=== PATIENT | female | born 1950 | race Caucasian/White ===

== ENCOUNTER 2016-11-23 18:34 | Emergency (ER) | payer MEDICARE, OTHER ==
[~2016-11-23] VITALS: Ht 168.9 cm; Wt 97.7 kg
[2016-11-23 18:42] VITALS: BP 142/83; PULSE 71; RESP 22; O2SAT 100
[2016-11-23] MEDS ORDERED: oxyCODONE-Acetamin 5-325 mg Tablet PO ONE (19:00)
--- NOTE | 2016-11-23 19:37 | DRSVH ---
PROCEDURE: X-RAY LEFT SHOULDER, MINIMUM TWO VIEWS ([id number]) INDICATIONS: fell onto shoulder/severe pain TECHNIQUE: 2 views of the shoulder were acquired. COMPARISON: [facility], MR, SHOULDER LT W/O CONTRAST, 04/14/2013, 8:15. FINDINGS: Bones: There is a comminuted fracture of the humeral head and neck with mild impaction and displaceme nt. No suspicious bony lesions. Visualized ribs appear intact. Soft tissues: A calcific density overlying the right head noted, likely secondary to calcific tendini tis. IMPRESSION: 1. Comminuted fracture of the humeral head and neck. 2. Calcific tendinitis of the rotator cuff. Dictated by: Shine Saldaña M.D. on 11/23/2016 at 19:35 Approved by: Shine Saldaña M.D. on 11/23/2016 at 19:37
--- NOTE | 2016-11-23 20:22 | ED.REPORT ---
HPI-Extremity Problem Upper Date of Service Nov 23, 2016 ED Provider: Cesar Grant DO A right-handed 66 year old female with a history of diabetes presents to the ED complaining of left shoulder pain. The pt was leaving a [place] [employer] this evening when she tripped on a step and fell on the shoulder. The pt did hit her head, but states that it was not very hard. She denies loss of consciousness or neck pain. She also denies chest pain or concerning symptoms prior to the fall. The pt is not taking blood thinners. Nursing Notes Stated Complaint: GLF, LEFT ARM PAIN Chief Complaint: Extremity Trauma Nursing Notes Reviewed: Yes Allergies: Coded Allergies: Sulfa (Sulfonamide Antibiotics) (Verified Allergy, Severe, Rash,Itching,, 11/23/16) Thiazides (Verified Allergy, Severe, Anaphylaxis, 11/23/16) ciprofloxacin (Verified Allergy, Severe, Rash,Itching,, 11/23/16) acetaminophen (Verified Adverse Reaction, Unknown, 11/23/16) hydrocodone (Verified Adverse Reaction, Unknown, 11/23/16) General Time Seen by MD: 20:21 Chief Complaint Shoulder injury left Hx Obtained From: Patient Arrived By: Walk-in Onset Occurred: 1 - 4 hours ago Symptom Duration: Since onset Recent Healthcare: No recent doctor visit, No recent hospitalization Similar Sx Previous: No Past Medical History Past Medical History diabetes Past Surgical History none reported Smoking History Unknown if Ever Smoker Social History Other Social History: Good social support Ambulatory Status Independent Review of Systems Constitutional: Denies: Fever Musculoskeletal: Reports: Joint pain (left shoulder), Denies: Back pain, Neck pain Skin: Denies Rash Neurologic: Denies: Change LOC, Headache Complete sys rev & neg: except as marked. Respiratory: Denies: Non-productive cough, Shortness of breath Cardiovascular: Denies: Chest pain GI: Denies: Abdominal pain Physical Exam Initial Vital Signs Vital Signs (First) Date Time Temp Pulse Resp B/P Pulse Ox O2 Delivery O2 Flow Rate FiO2 11/23/16 18:42 36.4 71 22 142/83 100 11/23/16 23:06 Room Air Initial VS: Reviewed General/Constitutional: Awake, Alert Neck: Atraumatic, Supple, Full range of motion Respiratory / Chest: Atraumatic, Breath sounds NL, Breath sounds = bilat, No respiratory distress Cardiovascular: Heart rate NL, Regular rhythm, Heart sounds NL Upper Extremity / MS: Neurologic intact, Vascular intact tender left proximal proximal humerus with soft tissue swelling sensation intact normal radial, ulnar, and medial nerves Skin: Atraumatic, Color NL, No rash, Warm, Dry Neurologic: Oriented X3, Speech NL, No motor deficits, No sensory deficits Head / Eyes: Atraumatic, Normocephalic, PERRL, EOMI ENT: Atraumatic, Airway patent, Mucous membranes moist Abdomen: Atraumatic, Soft, Non-tender Back: Atraumatic, Full range of motion Lower Extremity / Pelvis / MS: Atraumatic, Full range of motion Psychiatric: Affect NL, Mood NL Interpretation & Diagnostics Pulse Oximetry Interpretation Pulse Oximetry Interpretation: 100% on room air Pulse Oximetry: Pulse Ox normal X-Ray Chest Interpretation Chest Xray Interpretation: IMPRESSION: 1.Left basilar infiltrates or atelectasis. 2. Left humeral head and neck fracture. Dictated by: Sihne Saldaña M.D. on 11/23/2016 at 21:59 Approved by: Shine Saldaña M.D. on 11/23/2016 at 22:02 Interpretation / Wet Read by: Interpret - Radiologist X-Ray Interpretation Xray Interpretation: IMPRESSION: 1. Comminuted fracture of the humeral head and neck. 2. Calcific tendinitis of the rotator cuff. Dictated by: Shine Saldaña M.D. on 11/23/2016 at 19:35 Approved by: Shine Saldaña M.D. on 11/23/2016 at 19:37 X-Ray Ordered: Shoulder left Interpretation / Wet Read by: Interpret - Radiologist Procedures Splint Application - Fx Mgt Time: 21:19 Procedure Performed by: [employer]ling [employer]er, Under my direct supervis Precise Anatomic Location: left shoulder Type of Immobilization: Ortho-glass, Sling Definitive Fracture Care: Sling, Splint Post-Procedure / Complications: Cap refill normal, Post splint vascular nl, Post splint neuro nl, Condition improved, Tolerated procedure well, Patient stable Re-Eval/Medical Decision Source of Hx: Old records Re-Evaluation/Progress #1: Time of Eval: 21:19 Re-Evaluation/Progress Note: Pt rechecked and splint is placed. Pt tolerated the procedure well and there were no complications. Re-Evaluation/Progress #2: Time of Eval: 21:36 Patient Status: Condition improved Re-Evaluation/Progress Note: Pt rechecked, who is reporting some lower left rib cage pain. Plan for chest x-ray is discussed. Re-Evaluation/Progress #3: Time of Eval: 22:20 Patient Status: Condition improved Re-Evaluation/Progress Note: Pt rechecked, who is resting comfortably. She is informed of CXR results and the plan for discharge. The pt understands and agrees with the plan. All questions are addressed at this time. Consultation : Referral / Consult Name: Renato Bey MD Consulted With: Orthopedic Call Returned at: 20:35 Decorator Mannequin: Will see in office, Agrees with eval, Agrees with plan Note: Spoke with Dr. Bey, orthopedic surgeon, regarding pt's case. Dr. Bey agrees with the evaluation and will see the pt in the office. Counseled Regarding: Diagnosis, Lab results, Need for follow-up, When/why to return to ED Discharge & Departure Impression: Primary Impression: Closed fracture of left proximal humerus Encounter type: initial encounter Fracture morphology: unspecified fracture morphology Qualified Code: S42.202A - Unspecified fracture of upper end of left humerus, initial encounter for closed fracture Disposition: Home Discharge Condition All VS Reviewed: Yes Condition: Stable Patient Instructions: Splint Care (ED) Additional Instructions: Take 1-2 Percocet every 6 hours as needed for severe pain. Do not drink, drive, or consume acetaminophen while taking the Percocet. Keep the shoulder splinted until follow up. Call Dr. Bey (orthopedic surgeon) on Thursday to make an appointment this week. Return to the emergency department if you develop any new or worsening symptoms. The chest x-ray shows atelectasis at the base of your left lung. This is most likely from not being able to take a deep breath or possibly from bruised lungs. Pneumonia seems less likely. If you develop a fever or any shortness of breath or cough then we need to consider pneumonia. Otherwise take the Percocet as instructed. Keep the shoulder immobilized. If you develop any worsening pain or any numbness or weakness in your digits and come back right away. Return if any problems whatsoever. Referrals: Chris Palomo MD (PCP) Renato Bey MD Scribe Attestation Portions of this note were transcribed by Ryan Johnson. I, Dr. Grant personally performed the history, physical exam and medical decision-making; I reviewed and confirmed the accuracy of the information in the transcribed note. Signed by: Ibrahima Holder, 11/23/2016 and 22:25. copies to: Renato Bey MD; Chris Palomo MD, Todd P DO Nov 23, 2016 20:22 RYAN JOHNSON Nov 23, 2016 20:40
[2016-11-23] MEDS: fentaNYL-PF 50 mCg/mL 2 mL Inj IVPUSH PRN ×2 (21:00→21:15)
[2016-11-23] MEDS ORDERED: _oxyCODONE/APAP 5-325 mg Tablet PO PRN (21:00)
--- NOTE | 2016-11-23 22:02 | DRSVH ---
PROCEDURE: X-RAY CHEST ONE VIEW, PORTABLE ([id number]) INDICATIONS: fall, left rib cage pain TECHNIQUE: One view of the chest was acquired. COMPARISON: [facility], CR, XR SHOULDER MIN 2VW LT, 11/23/2016, 19:02. FINDINGS: Surgical changes and devices: None. Lungs and pleura: There are left basilar infiltrates atelectasis. No pleural effusions or pneumothor ax. L Mediastinum: Mediastinal contours appear normal. Heart size is normal. Bones and chest wall: No suspicious bony lesions. Overlying soft tissues appear unremarkable. Left humeral head and neck fracture. IMPRESSION: 1.Left basilar infiltrates or atelectasis. 2. Left humeral head and neck fracture. Dictated by: Shine Saldaña M.D. on 11/23/2016 at 21:59 Approved by: Shine Saldaña M.D. on 11/23/2016 at 22:02
[2016-11-23 23:06] VITALS: BP 121/68; PULSE 98; RESP 18; O2SAT 94
== END 2016-11-23 23:08 | disposition home or self-care (01) ==
LOC: SED 18:34
DX: S42.202A Unspecified fracture of upper end of left humerus, initial encounter for closed fracture (principal); W01.0XXA Fall on same level from slipping, tripping and stumbling without subsequent striking against object, initial encounter; Y93.89 Activity, other specified; Y92.22 Religious institution as the place of occurrence of the external cause; Y99.8 Other external cause status; E11.9 Type 2 diabetes mellitus without complications; Z88.1 Allergy status to other antibiotic agents; Z88.2 Allergy status to sulfonamides; Z88.5 Allergy status to narcotic agent; Z88.6 Allergy status to analgesic agent; Z88.8 Allergy status to other drugs, medicaments and biological substances
CPT/HCPCS: 29105; 71010; 73030; 96374; 96375; 99284; J2250; J3010